=== PATIENT | male | born 1995 | race Caucasian/White ===

== ENCOUNTER 2017-08-24 23:09 | Emergency (ER) | payer OTHER, BC ==
[~2017-08-24] VITALS: Ht 170.2 cm; Wt 101.5 kg
[2017-08-25] MEDS ORDERED: PROAIR HFA8.5 GM IH (00:42)
[2017-08-25] MEDS ORDERED: MEDROL DOSEPAK4 MG PO (00:42)
[2017-08-25] MEDS ORDERED: ZITHROMAX Z-PA250 MG PO (00:43)
[2017-08-25 01:00] VITALS: BP 150/66
== END 2017-08-25 01:08 | disposition home or self-care (01) ==
LOC: EME 23:09
DX: J20.9 Acute bronchitis, unspecified (principal); J45.909 Unspecified asthma, uncomplicated
CPT/HCPCS: 71046; 94640; 99281; 99284; J7512